=== PATIENT | female | born 2005 | race Two or more races ===

== ENCOUNTER 2024-06-17 14:52 | Emergency (ER) | payer MEDICAID ==
[~2024-06-17] VITALS: Ht 160 cm; Wt 65.8 kg
[2024-06-17 15:21] VITALS: BP 145/79; TEMP 97.9
[2024-06-17 16:29] LABS: PREGNANCY TEST URINE QUAL NEGATIVE (NEGATIVE)
[2024-06-17] MEDS ORDERED: ONDA4TAB5 PO (16:36)
[2024-06-17 16:50] VITALS: O2SAT 99
== END 2024-06-17 16:53 | disposition home or self-care (01) ==
LOC: ER 14:59
DX: R11.2 Nausea with vomiting, unspecified (principal)
CPT/HCPCS: 84703-TC

== ENCOUNTER 2024-08-20 12:40 | Emergency (ER) | payer MEDICAID, OTHER ==
[~2024-08-20] VITALS: Ht 160 cm; Wt 63.5 kg
[~2024-08-20 12:40] MED LIST: ONDA4TAB5 PO
[2024-08-20 14:36] VITALS: TEMP 97.8
[2024-08-20] MEDS: IV NS 0.9% 1,000 ML BAG IV ONE (14:37)
[2024-08-20 14:52] LABS: PARTIAL THROMBOPLASTIN TIME 32.1 SEC (24.3-34.3); PROTHROMBIN TIME 10.6 SECS (9.2-11.1)
[2024-08-20 14:57] LABS: BASOPHILS % (AUTO) 0.4 % (0.0-2.0); EOSINOPHILS # (AUTO) 0.1 K/uL (0.0-0.7); EOSINOPHILS % (AUTO) 0.7 % (0.0-6.0); HEMATOCRIT 40 % (33-45); HEMOGLOBIN 13.5 g/dL (11.5-14.8); LYMPHOCYTES # (AUTO) 1.3 K/uL (0.8-4.8); LYMPHOCYTES % (AUTO) 15.2 % (20.0-44.0); MEAN CORPUSCULAR HEMOGLOBIN 30 PG (26.0-33.0); MEAN CORPUSCULAR HGB CONC 34 g/dl (31.0-36.0); MEAN CORPUSCULAR VOLUME 88 fL (82-100); MONOCYTES # (AUTO) 0.6 K/uL (0.1-1.30); NEUTROPHILS # (AUTO) 6.7 K/uL (1.8-8.9); NEUTROPHILS % (AUTO) 76.7 % (43.0-81.0); PLATELET COUNT (AUTO) 320 K/uL (150-450); RED BLOOD CELL COUNT(AUTO) 4.53 MIL/uL (4.0-5.2); RED CELL DISTRIBUTION WIDTH 13.2 % (11.5-15.0); WHITE BLOOD COUNT (AUTO) 8.7 K/uL (4.3-11.0)
[2024-08-20 15:06] LABS: CALCIUM, SERUM 9.2 mg/dL (8.5-10.1); CARBON DIOXIDE 28 mmol/L (21-32); CHLORIDE 106 mmol/L (98-107); CREATININE 0.7 mg/dL (0.6-1.3); GLUCOSE 98 mg/dL (74-106); POTASSIUM 4.2 mmol/L (3.5-5.1); SODIUM SERUM 141 mmol/L (136-145); UREA NITROGEN, BLOOD 9 mg/dL (7-18)
[2024-08-20 15:11] LABS: ALANINE AMINOTRANSFERASE 64 U/L (12-78); ALBUMIN 4.3 g/dL (3.4-5.0); ALKALINE PHOSPHATASE 131 U/L (46-116); ASPARTATE AMINOTRANSFERASE 31 U/L (15-37); BILIRUBIN,DIRECT 0.1 mg/dL (0.0-0.2); BILIRUBIN,TOTAL 0.3 mg/dL (0.2-1.0); TOTAL PROTEIN, SERUM 7.8 g/dL (6.4-8.2)
[2024-08-20 15:48] LABS: APPEARANCE,URINE CLEAR (CLEAR); BILIRUBIN,URINE NEGATIVE (NEGATIVE); BLOOD, URINE TRACE-INTA Ery/uL (NEGATIVE); COLOR,URINE YELLOW (YELLOW); KETONES,URINE NEGATIVE (NEGATIVE); LEUKOCYTE ESTERASE ,URINE NEGATIVE (NEGATIVE); NITRITE, URINE NEGATIVE (NEGATIVE); PH,URINE 7.5 (5.0-8.0); PROTEIN,URINE NEGATIVE (NEGATIVE); UGLUCOSE NEGATIVE (NEGATIVE); UROBILINOGEN,URINE 0.2 EU/dL (0.2)
[2024-08-20 16:06] LABS: PREGNANCY TEST URINE QUAL NEGATIVE (NEGATIVE)
[2024-08-20 16:12] LABS: ADD URINE CULTURE NO; BACTERIA,URINE None seen /HPF (None Seen); WBC,URINE 0-2 /HPF (0-3)
[2024-08-20 18:17] VITALS: BP 122/80; O2SAT 98
== END 2024-08-20 18:10 | disposition home or self-care (01) ==
LOC: ER 12:40
DX: N93.9 Abnormal uterine and vaginal bleeding, unspecified (principal); Z88.0 Allergy status to penicillin
CPT/HCPCS: 36415; 71045-TC; 76856-TC; 80048-TC; 80076-TC; 81001; 84484-TC; 84702-TC; 84703-TC; 85025-TC; 85730-TC; 86850-TC

== ENCOUNTER 2025-03-14 11:23 | Emergency (ER) | payer OTHER ==
[~2025-03-14] VITALS: Ht 160 cm; Wt 68.0 kg
[2025-03-14 11:42] VITALS: TEMP 98.6
[2025-03-14] MEDS ORDERED: IBUPROFEN 600 MG TABLET ONE (12:19)
[2025-03-14] MEDS: IBUPROFEN 600 MG TABLET PO ONE (12:29)
[2025-03-14 13:04] VITALS: BP 117/70; O2SAT 96
== END 2025-03-14 13:05 | disposition home or self-care (01) ==
LOC: ER 11:30
DX: R07.9 Chest pain, unspecified (principal); R05.9 Cough, unspecified; K21.9 Gastro-esophageal reflux disease without esophagitis; Z88.0 Allergy status to penicillin; Z79.899 Other long term (current) drug therapy
CPT/HCPCS: 71045-TC

== ENCOUNTER 2025-07-09 13:08 | Emergency (ER) | payer OTHER ==
[~2025-07-09] VITALS: Ht 160 cm; Wt 70.8 kg
[2025-07-09 13:24] VITALS: BP 140/80; TEMP 97.9
[2025-07-09 15:54] VITALS: O2SAT 99
== END 2025-07-09 15:55 | disposition home or self-care (01) ==
LOC: ER 13:12
DX: L60.0 Ingrowing nail (principal); L08.9 Local infection of the skin and subcutaneous tissue, unspecified; Z88.0 Allergy status to penicillin
CPT/HCPCS: 11730